=== PATIENT | female | born 1950 | race Caucasian/White ===

== ENCOUNTER 2017-06-24 11:18 | Emergency (ER) | payer MEDICARE ==
--- NOTE | 2017-06-24 11:46 | Emergency Department Record ---
History of Present Illness - General Chief Complaint: Dizziness Stated Complaint: HEADACHE,VERTIGO Time Seen by Provider: 06/24/17 11:37 Source: Patient Mode of Arrival: Ambulatory Limitations: No limitations - History of Present Illness Initial Comments: 67 yo female presents with episodes of dizziness with moving her head. The patient states she has a history of vertigo in the past. She states on Saturday she again developed room spinning when she turns her head. She does get mild nausea. The symptoms resolve with holding head still. No trouble walking. No double vision. She states she bent over quickly and fell down. She does not thing she lost consciousness. No memory loss. No coordination trouble. No vomiting. No current headache. No vision loss. No hearing changes. MD Complaint: Dizziness Onset/Timin -: Days(s) Timing: Gradual onset Description: Sense of movement, Other History of Same: Yes History of Trauma: No Severity: Moderate Improves With: Remaining still Worsens With: Other Associated Symptoms: Syncope - Precious Coma Scale Eye Response: (4) Open spontaneously Motor Response: (6) Obeys commands Verbal Response: (5) Oriented [place] Total: 15 - Symptoms of Stroke Onset of Symptoms Date: 06/22/17 Symptoms of stroke: Dizziness, Vertigo - Related Data Home Medications Medication Instructions Recorded Confirmed Last Taken Fluoxetine HCl 20 mg PO DAILY 06/24/17 06/24/17 Unknown Previous Rx's Medication Instructions Recorded Meclizine HCl [Antivert] 25 mg PO Q8H #20 tablet 06/24/17 Allergies Allergy/AdvReac Type Severity Reaction Status Date / Time cefprozil [From Cefzil] Allergy HIVES Verified 06/24/17 11:41 nitrofurantoin AdvReac NAUSEA AND Verified 06/24/17 11:41 macrocrystalline VOMITING [From Macrodantin] sulfamethoxazole AdvReac NAUSEA AND Verified 06/24/17 11:41 [From Bactrim] VOMITING trimethoprim [From Bactrim] AdvReac NAUSEA AND Verified 06/24/17 11:41 VOMITING Travel Screening - Travel/Exposure Within Last 30 Days Have you traveled within the last 30 days?: No Review of Systems Constitutional: Denies: Chills, Fever, Malaise, Weakness Eyes: Denies: Eye discharge, Eye pain, Photophobia, Vision change ENT: Denies: Congestion, Throat pain Respiratory: Denies: Cough, Dyspnea, Hemoptysis, Stridor, Wheezes Cardiovascular: Reports: Syncope (near syncope, no complete LOC). Denies: Chest pain, Dyspnea on exertion, Edema, Palpitations Endocrine: Denies: Fatigue, Polydipsia, Polyuria Gastrointestinal: Denies: Abdominal pain, Diarrhea, Nausea, Vomiting Genitourinary: Denies: Dysuria, Hematuria, Urgency Musculoskeletal: Denies: Arthralgia, Back pain, Neck pain Skin: Denies: Bruising, Change in color, Rash Neurological: Reports: Vertigo. Denies: Abnormal gait, Confusion, Headache, Numbness, Paresthesias, Seizure, Tingling, Tremors, Weakness Psychiatric: Denies: Anxiety Hematological/Lymphatic: Denies: Blood Clots, Easy bleeding, Easy bruising, Swollen glands Past Medical History - SOCIAL HISTORY Smoking Status: Never smoker - RESPIRATORY Hx Respiratory Disorders: No - CARDIOVASCULAR Hx Cardio Disorders: No - NEURO Hx Neuro Disorders: No - GI Hx GI Disorders: Yes Comment:: GERD - Hx Genitourinary Disorders: No - ENDOCRINE Hx Endocrine Disorders: No - MUSCULOSKELETAL Hx Musculoskeletal Disorders: Yes Hx Arthritis: Yes - PSYCH Hx Psych Problems: Yes Hx Anxiety: Yes Hx Depression: Yes - HEMATOLOGY/ONCOLOGY Hx Hematology/Oncology Disorders: Yes Comment:: Hypercholestremia Family Medical History Hx Cancer: Father, Mother Hx Heart Disease: Mother Hx Liver Disease: Father Physical Exam - General General Appearance: Alert, Oriented x3, Cooperative, No acute distress Limitations: No limitations - Head Head exam: Atraumatic, Normocephalic, Normal inspection - Eye Eye exam: Normal appearance, PERRL, EOMI, Nystagmus (nystagmus with Left gaze, fatigues). negative: Conjunctival injection, Scleral icterus - ENT ENT exam: Normal exam, Mucous membranes moist Ear exam: Normal external inspection Nasal Exam: Normal inspection Mouth exam: Normal external inspection Teeth exam: Normal inspection Throat exam: Normal inspection - Neck Neck exam: Normal inspection, Full ROM. negative: Tenderness - Respiratory Respiratory exam: Normal lung sounds bilaterally. negative: Respiratory distress - Cardiovascular Cardiovascular Exam: Regular rate, Normal rhythm, Normal heart sounds Peripheral Pulses: 2+: Radial (R), Radial (L) - GI/Abdominal GI/Abdominal exam: Soft. negative: Tenderness - Rectal Rectal exam: Deferred - exam: Deferred - Extremities Extremities exam: Normal inspection, Full ROM, Normal capillary refill. negative: Pedal edema, Tenderness - Back Back exam: Reports: Normal inspection, Full ROM. Denies: CVA tenderness (R), CVA tenderness (L), Muscle spasm, Rash noted, Tenderness - Neurological Neurological exam: Alert, CN II-XII intact, Normal gait, Oriented X3, Reflexes normal, Other (No PND, no ataxia, Normal FTN, No double vision, No lower extremity drift). negative: Altered, Motor sensory deficit - Psychiatric Psychiatric exam: Normal affect, Normal mood. negative: Agitated, Anxious, Depressed - Skin Skin exam: Dry, Intact, Normal color, Warm Course Vital Signs 06/24/17 11:34 Temperature 97.7 F Pulse Rate 79 Respiratory 18 Rate Blood Pressure 122/53 Pulse Ox 97 - Reevaluation(s) Reevaluation #1: EKG 11:50, NSR, L axis, QTC 482, No ST changes. No changes from 06/19/14 06/24/17 12:03 06/24/17 12:45 The labs were reviewed. Mild increase in LFT other tran no acute changes. Mild small vessel ischemic disease, no acute process or changes The patient report very good results with the Antivert She has signs that are consistent with peripheral in nature with sudden onset with turning, nystagmus, fatigues with being still, no other associated neurologic symptoms. She is to call her PCP for close follow up this week to review the ED visit and tests. Medical Decision Making - Lab Data Result diagrams: 06/24/17 11:51 06/24/17 11:51 Disposition Disposition: Discharge Clinical Impression: Vertigo Disposition: Home, Self-Care Condition: (1) Good Instructions: Vertigo (ED), Dizziness (ED) Additional Instructions: Rest and stay well hydrated Return or be seen if worse or any new symptoms or concerns Call your doctor today to review the symptoms, ED visit and the results Prescriptions: Meclizine HCl [Antivert] 25 mg PO Q8H #20 tablet Forms: Patient Portal Access Quality - Quality Measures Quality Measures: N/A - Blood Pressure Screening Does Patient Have Any of the Following: No Blood Pressure Classification: Pre-Hypertensive BP Reading Systolic Measurement: 128 Diastolic Measurement: 72 Screening for High Blood Pressure: < Pre-Hypertensive BP, F/U Documented > [ G8950] Pre-Hypertensive Follow-up Interventions: Referral to alternative/primary care provider.
[2017-06-24] MEDS ORDERED: MECLIZINE 25 MG TABLET PO ONE (11:55)
[2017-06-24 12:08] LABS: BASO % 0.9 % (0-6); EOS % 1.6 % (0-6); GRAN % 68.4 % (47-80); HEMOGLOBIN 14.1 gm/dl (11.6-16.0); LYMPH % 21.9 % (16-45); MEAN CORPUSCULAR HEMOGLOBIN 28.2 pg (27-33); MEAN PLATELET VOLUME 9.5 fl (7.4-10.4); MONO % 7.2 % (0-9); PLATELET COUNT 274 K/uL (130-400); RED CELL DISTRIBUTION WIDTH 14.8 % (11.5-14.5); WHITE BLOOD COUNT W/O DIFF 7.6 K/uL (4.2-12.2)
[2017-06-24 12:18] LABS: BLOOD UREA NITROGEN 14 mg/dL (8-23); CREATININE 0.7 mg/dL (0.5-0.9); EST GLOMERULAR FILTRATION RATE > 60 mL/min
[2017-06-24 12:21] LABS: GLUCOSE,RANDOM 112 mg/dL (74-109); INR 0.9; PARTIAL THROMBOPLASTIN TIME 26.9 SECONDS (24.5-39.1); PROTHROMBIN TIME (PATIENT) 9.9 SECONDS (9.5-12.1)
[2017-06-24 12:23] LABS: ALB/GLOB RATIO 1.7 (1.1-1.8); ALBUMIN 4.4 g/dL (4.0-5.0); ALT/SGPT 105 U/L (<33); AST/SGOT 76 U/L (10.0-35.0)
[2017-06-24 12:24] LABS: ALKALINE PHOSPHATASE 115 U/L (35-104)
--- NOTE | 2017-06-25 08:31 | CT SCAN REPORT ---
EXAM: CT OF THE BRAIN WITHOUT CONTRAST HISTORY: SYNCOPE. TECHNIQUE: CT of the brain without contrast was obtained. Comparison: 06/19/14 CT brain. FINDINGS: The globes are intact. The paranasal sinuses and mastoid air cells are unremarkable. No displaced or depressed skull fracture. Hyperostosis frontalis interna. Negative for intra or extraaxial hemorrhage. Basal ganglia calcifications. CT is limited for the evaluation of acute infarct. No CT evidence for large or territorial acute infarct. No mass or midline shift. Minimal hypodensities in the periventricular and subcortical white matter likely reflecting sequelae of minor small vessel ischemic change. IMPRESSION: MINOR SMALL VESSEL ISCHEMIC CHANGE. NO ACUTE INTRACRANIAL ABNORMALITY. JOB NUMBER: [id number] [facility]
== END 2017-06-24 13:11 | disposition home or self-care (01) ==
LOC: ER 11:18
DX: R42 Dizziness and giddiness (principal); R94.5 Abnormal results of liver function studies; R51 Headache; R11.0 Nausea
CPT/HCPCS: 70450; 80053; 84443; 85025; 85610; 85730; 93005; 93010; 99284

== ENCOUNTER 2018-10-09 03:37 | Emergency (ER) | payer MEDICARE, BC ==
[2018-10-09 04:00] LABS: URINE APPEARANCE CLEAR; URINE BILIRUBIN SMALL (NEGATIVE); URINE BLOOD MODERATE (NEGATIVE); URINE COLOR YELLOW; URINE GLUCOSE (UA) NEGATIVE (NEGATIVE); URINE KETONE NEGATIVE (NEGATIVE); URINE LEUKOCYTE ESTERASE NEGATIVE (NEGATIVE); URINE NITRITE NEGATIVE (NEGATIVE); URINE UROBILINOGEN 0.2 E.U./dL (0.20 - 1.00)
[2018-10-09] MEDS ORDERED: 0.9 % SODIUM CHLORIDE 1,000 ML BAG IV ONE (04:02)
[2018-10-09] MEDS ORDERED: KETOROLAC 30 MG/ML VIAL IVP ONE (04:02)
[2018-10-09] MEDS ORDERED: ONDANSETRON HCL IV 4 MG/2 ML VIAL IV ONE (04:02)
[2018-10-09 04:08] LABS: URINE RBC 16 - 25 (NONE SEEN); URINE WBC 0 - 2 (0-2/hpf)
[2018-10-09 04:09] LABS: URINE CALCIUM OXALATE CRYSTALS FEW /hpf
[2018-10-09 04:18] LABS: ABSOLUTE NEUTROPHIL COUNT 6.78; BASO % 0.7 % (0-6); EOS % 1.6 % (0-6); GRAN % 68.9 % (47-80); HEMATOCRIT 42.4 % (35.0-47.0); HEMOGLOBIN 14.3 gm/dl (11.6-16.0); LYMPH % 21.3 % (16-45); MEAN CELL VOLUME 84.8 fl (81-97); MEAN CORPUSCULAR HEMOGLOBIN 28.6 pg (27-33); MEAN CORPUSCULAR HGB CONC 33.7 g/dl (32-36); MEAN PLATELET VOLUME 9.7 fl (7.4-10.4); MONO % 7.5 % (0-9); PLATELET COUNT 242 K/uL (130-400); RED CELL DISTRIBUTION WIDTH 14.7 % (11.5-14.5); WHITE BLOOD COUNT W/O DIFF 9.9 K/uL (4.2-12.2)
[2018-10-09 04:32] LABS: BLOOD UREA NITROGEN 22 mg/dL (8-23); CREATININE 0.8 mg/dL (0.5-0.9); EST GLOMERULAR FILTRATION RATE > 60 mL/min
[2018-10-09 04:33] LABS: TOTAL PROTEIN 6.9 g/dL (6.6-8.7)
[2018-10-09 04:35] LABS: GLUCOSE,RANDOM 122 mg/dL (74-109)
[2018-10-09 04:37] LABS: ALT/SGPT 123 U/L (<33)
[2018-10-09 04:38] LABS: ALBUMIN 4.3 g/dL (4.0-5.0); ALKALINE PHOSPHATASE 95 U/L (35-104); AST/SGOT 74 U/L (10.0-35.0); BILIRUBIN,DIRECT < 0.2 mg/dL (0-0.3)
--- NOTE | 2018-10-09 04:41 | Emergency Department Record ---
History of Present Illness - General Chief Complaint: Abdominal Pain Stated Complaint: ABDOMINAL PAIN Time Seen by Provider: 10/09/18 03:58 Source: Patient Mode of Arrival: Ambulatory Limitations: No limitations - History of Present Illness Initial Comments: pt awakened with severe pain that feels like previous kidney stone. she is unable to to say which side it is on. 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 MD Complaint: Abdominal pain, Flank pain Onset/Timin -: Hour(s) Location: Suprapubic Radiation: Other Migration to: No migration Severity: Moderate Severity scale (1-10): 7 Quality: Other Consistency: Constant Improves With: Nothing Worsens With: Nothing Associated Symptoms: Diarrhea, Vomiting - Related Data Patient : No Previous Rx's Medication Instructions Recorded Hydrocodone/Acetaminophen [[place] 1 each PO Q6HR #12 tablet 10/09/18 5-325 Tablet] Allergies Allergy/AdvReac Type Severity Reaction Status Date / Time cefprozil [From Cefzil] Allergy HIVES Verified 10/09/18 03:41 nitrofurantoin AdvReac NAUSEA AND Verified 10/09/18 03:41 macrocrystalline VOMITING [From Macrodantin] sulfamethoxazole AdvReac NAUSEA AND Verified 10/09/18 03:41 [From Bactrim] VOMITING trimethoprim [From Bactrim] AdvReac NAUSEA AND Verified 10/09/18 03:41 VOMITING Travel Screening - Travel/Exposure Within Last 30 Days Have you traveled within the last 30 days?: No - Travel/Exposure Within Last Year Have you traveled outside the [place] in the last year?: No - Additonal Travel Details Have you been exposed to anyone with a communicable illness?: No - Travel Symptoms Symptom Screening: None Review of Systems Reviewed: No additional complaints except as noted below Constitutional: Reports: As per HPI. Denies: Chills, Fever, Malaise, Night sweats, Weakness, Weight change Eyes: Reports: As per HPI. Denies: Eye discharge, Eye pain, Photophobia, Vision change ENT: Reports: As per HPI. Denies: Congestion, Dental pain, Ear pain, Epistaxis, Hearing loss, Throat pain Respiratory: Reports: As per HPI. Denies: Cough, Dyspnea, Hemoptysis, Stridor, Wheezes Cardiovascular: Reports: As per HPI. Denies: Arrhythmia, Chest pain, Dyspnea on exertion, Edema, Murmurs, Orthopnea, Palpitations, Paroxysmal nocturnal dyspnea, Rheumatic Fever, Syncope Endocrine: Reports: As per HPI. Denies: Fatigue, Heat or cold intolerance, Polydipsia, Polyuria Gastrointestinal: Reports: As per HPI, Abdominal pain. Denies: Constipation, Diarrhea, Hematemesis, Hematochezia, Melena, Nausea, Vomiting Genitourinary: Reports: As per HPI. Denies: Abnormal menses, Discharge, Dyspareunia, Dysuria, Frequency, Hematuria, Incontinence, Retention, Urgency Musculoskeletal: Reports: As per HPI. Denies: Arthralgia, Back pain, Gout, Joint swelling, Myalgia, Neck pain Skin: Reports: As per HPI. Denies: Bruising, Change in color, Change in hair/nails, Lesions, Pruritus, Rash Neurological: Reports: As per HPI. Denies: Abnormal gait, Confusion, Headache, Numbness, Paresthesias, Seizure, Tingling, Tremors, Vertigo, Weakness Psychiatric: Reports: As per HPI. Denies: Anxiety, Auditory hallucinations, Depression, Homicidal thoughts, Suicidal thoughts, Visual hallucinations Hematological/Lymphatic: Reports: As per HPI. Denies: Anemia, Blood Clots, Easy bleeding, Easy bruising, Swollen glands Past Medical History - SOCIAL HISTORY Smoking Status: Never smoker Alcohol Use: Rare Drug Use: None - RESPIRATORY Hx Respiratory Disorders: No - CARDIOVASCULAR Hx Cardio Disorders: No Comment:: hypercholesteremia - NEURO Hx Neuro Disorders: No - GI Hx GI Disorders: Yes Comment:: GERD - Hx Genitourinary Disorders: Yes Hx Kidney Stones: Yes - ENDOCRINE Hx Endocrine Disorders: No - MUSCULOSKELETAL Hx Musculoskeletal Disorders: Yes Hx Arthritis: Yes - PSYCH Hx Psych Problems: Yes Hx Anxiety: Yes Hx Depression: Yes - HEMATOLOGY/ONCOLOGY Hx Hematology/Oncology Disorders: Yes Comment:: Hypercholestremia Family Medical History Any Significant Family History?: No Hx Cancer: Father, Mother Hx Heart Disease: Mother Hx Liver Disease: Father Physical Exam - General General Appearance: Alert, Oriented x3, Cooperative, Moderate distress - Head Head exam: Normal inspection - Eye Eye exam: Normal appearance, PERRL, EOMI Pupils: Normal accommodation - ENT ENT exam: Normal exam, Mucous membranes moist, Normal external ear exam, Normal orophraynx Ear exam: Normal external inspection. negative: External canal tenderness Nasal Exam: Normal inspection. negative: Discharge, Sinus tenderness Mouth exam: Normal external inspection, Tongue normal Teeth exam: Normal inspection. negative: Dental caries Throat exam: Normal inspection. negative: Tonsillar erythema, Tonsillar exudate - Neck Neck exam: Normal inspection, Full ROM. negative: Tenderness - Respiratory Respiratory exam: Normal lung sounds bilaterally. negative: Respiratory distress - Cardiovascular Cardiovascular Exam: Regular rate, Normal rhythm, Normal heart sounds - GI/Abdominal GI/Abdominal exam: Soft, Normal bowel sounds, Tenderness - Rectal Rectal exam: Deferred - exam: Deferred - Extremities Extremities exam: Normal inspection, Full ROM, Normal capillary refill. negative: Tenderness - Back Back exam: Reports: Normal inspection, Full ROM. Denies: Muscle spasm, Rash noted, Tenderness - Neurological Neurological exam: Alert, CN II-XII intact, Normal gait, Oriented X3 - Psychiatric Psychiatric exam: Normal affect, Normal mood - Skin Skin exam: Dry, Intact, Normal color, Warm Course Vital Signs 10/09/18 03:44 Temperature 97.5 F L Pulse Rate 89 Respiratory 22 Rate Blood Pressure 131/84 Pulse Ox 96 - Reevaluation(s) Reevaluation #1: 10/09/18 05:11 pt feels much better, pain is gone. ct shows a 5x10mm cystolith in the bladder Medical Decision Making - Lab Data Result diagrams: 10/09/18 04:10 10/09/18 04:10 Lab Results 10/09/18 10/09/18 Range/Units 03:58 04:10 WBC 9.9 (4.2-12.2) K/uL RBC 5.00 (3.80-5.40) M/uL Hgb 14.3 (11.6-16.0) gm/dl Hct 42.4 (35.0-47.0) % MCV 84.8 (81-97) fl MCH 28.6 (27-33) pg MCHC 33.7 (32-36) g/dl RDW 14.7 H (11.5-14.5) % Plt Count 242 (130-400) K/uL MPV 9.7 (7.4-10.4) fl Gran % 68.9 (47-80) % Lymphocytes % 21.3 (16-45) % Monocytes % 7.5 (0-9) % Eosinophils % 1.6 (0-6) % Basophils % 0.7 (0-6) % Absolute Neutrophils 6.78 Urine Color Yellow Urine Appearance Clear Urine pH 5.0 (5.0-8.0) Ur Specific [place] >= 1.030 (1.002-1.030) Urine Protein 30 mg/dl H (NEGATIVE) Urine Glucose (UA) Negative (NEGATIVE) Urine Ketones Negative (NEGATIVE) Urine Blood Moderate (NEGATIVE) Urine Nitrite Negative (NEGATIVE) Urine Bilirubin Small H (NEGATIVE) Urine Urobilinogen 0.2 (0.20 - 1.00) E.U./dL Ur Leukocyte Esterase Negative (NEGATIVE) Urine RBC 16 - 25 (NONE SEEN) Urine WBC 0 - 2 (0-2/hpf) Ur Epithelial Cells 3 - 6 (FEW) Calcium Oxalate Crystal Few /hpf Disposition Disposition: Discharge Clinical Impression: Renal lithiasis Hydronephrosis Qualifiers: Hydronephrosis type: with ureteral calculous obstruction Qualified Code(s): N13.2 - Hydronephrosis with renal and ureteral calculous obstruction Disposition: Home, Self-Care Condition: (1) Good Instructions: Kidney Stones (ED), How to Strain Your Urine (ED) Additional Instructions: follow up with dr arguello. push fluids. return sooner if worse Prescriptions: Hydrocodone/Acetaminophen [[place] 5-325 Tablet] 1 each PO Q6HR #12 tablet Referrals: Obed Arguello M.D. [MEDICAL DOCTOR] - [facility] [Provider Group] Forms: Patient Portal Access Quality - Quality Measures Quality Measures: N/A - Blood Pressure Screening Does Patient Have Any of the Following: No Blood Pressure Classification: Pre-Hypertensive BP Reading Systolic Measurement: 131 Diastolic Measurement: 84 Screening for High Blood Pressure: < Pre-Hypertensive BP, F/U Documented > [G8950] Pre-Hypertensive Follow-up Interventions: Follow-up with rescreen every year.
[2018-10-09] MEDS ORDERED: HYDROCODONE/APAP 5/325MG TABLET PO ONE (05:16)
--- NOTE | 2018-10-09 14:49 | CT SCAN REPORT ---
EXAM: CT OF THE ABDOMEN AND PELVIS WITHOUT IV CONTRAST HISTORY: THIS IS A 68-YEAR-OLD FEMALE WITH LOWER PELVIC AND PUBIC PAIN FOR THREE HOURS, SIMILAR TO PASSING STONES. HEMATURIA. TECHNIQUE: Axial computed tomography images of the abdomen and pelvis without IV contrast were obtained, with reconstruction in the coronal and sagittal planes. Comparison: No prior exams available. FINDINGS: LIVER: The liver is enlarged and demonstrates diffuse decreased attenuation as seen in hepatic steatosis. GALLBLADDER AND BILE DUCTS: Normal, no cholelithiasis or ductal dilatation. PANCREAS: Normal, no ductal dilatation or inflammatory changes. SPLEEN: Normal, no splenomegaly. ADRENALS: Normal, no mass. KIDNEYS AND URETERS: There is a posterior exophytic superior left renal cystic mass measuring up to 5.8 cm. A partially duplicated left urinary tract is noted. Mild left sided hydronephrosis. No renal calculus is identified. STOMACH AND BOWEL: Multiple colonic diverticula are present, no evidence of acute diverticulitis. APPENDIX: The appendix appears normal in size, no evidence of acute appendicitis. INTRAPERITONEAL SPACE: No free air or significant ascites. VASCULATURE: No abdominal aortic aneurysm or significant calcified plaque. LYMPH NODES: No lymphadenopathy. URINARY BLADDER: There is a 5 x 10 mm calcification anteriorly adjacent of the left UVJ. No other bladder calculi identified. REPRODUCTIVE: No suspicious masses. BONES AND JOINTS: No acute displaced fracture or dislocation. Mild degenerative changes of the lumbar spine are present. IMPRESSION: 1. 5 X 10 MM POSTERIOR LEFT URINARY BLADDER CALCULUS ANTERIORLY ADJACENT OF THE LEFT UVJ. 2. NO OTHER CALCULUS. MILD LEFT SIDED HYDRONEPHROSIS. NO HYDROURETER. 3. SIGMOID COLON DIVERTICULOSIS, NO EVIDENCE OF ACUTE DIVERTICULITIS OR APPENDICITIS. 4. HEPATOMEGALY, HEPATIC STEATOSIS. J[facility]BER: [id number] [facility]
== END 2018-10-09 05:34 | disposition home or self-care (01) ==
LOC: ER 03:37
DX: N13.2 Hydronephrosis with renal and ureteral calculous obstruction (principal); R19.7 Diarrhea, unspecified; R11.11 Vomiting without nausea; Z87.442 Personal history of urinary calculi
CPT/HCPCS: 99284 ×2; 96374; 96375; 96361; 85025; 80076; 80048; 81001; 74176; J1885; J2405; J7030

== ENCOUNTER 2018-10-31 08:39 | Day surgery (SDC) | payer MEDICARE, BC ==
[~2018-10-31 08:39] MED LIST: ACETAMINOPHEN 1,000 MG/100 ML BTL IVPB ONE; CLINDAMYCIN 600MG/50ML PREMIX 600 MG/50 ML BAG IVPB ONE
[2018-10-31] MEDS ORDERED: MIDAZOLAM HCL 2MG/2ML VIAL IV ONE (08:40)
[2018-10-31] MEDS ORDERED: ONDANSETRON HCL IV 4 MG/2 ML VIAL IVP ONE (08:40)
[2018-10-31] MEDS ORDERED: PROPOFOL 10 MG/ML VIAL IV ONE (08:40)
[2018-10-31] MEDS ORDERED: SEVOFLURANE 250 ML INH ONE (08:40)
[2018-10-31] MEDS ORDERED: LIDOCAINE 2% MDV (20MG/ML) 20ML VIAL IV ONE (08:40)
[2018-10-31] MEDS ORDERED: FENTANYL PF 100MCG/2ML VIAL IV ONE (08:40)
[2018-10-31] MEDS ORDERED: DEXAMETHASONE 4 MG/ML 1ML VIAL IVP ONE (08:40)
[2018-10-31] MEDS ORDERED: RINGERS SOLUTION,LACTATED 1,000 ML IV ONE ×2 (09:15→11:00)
[2018-10-31] MEDS ORDERED: OXYBUTYNIN CHLORIDE 5MG TABLET PO ONE (11:20)
[2018-10-31] MEDS ORDERED: PHENAZOPYRIDINE HCL 95 MG TABLET PO ONE (11:20)
[2018-10-31] MEDS ORDERED: HYDROCODONE/APAP 5/325MG TABLET PO ONE (11:58)
== END 2018-10-31 12:24 | disposition home or self-care (01) ==
LOC: SUR 08:39
PROVIDERS: ATTEND Urology
DX: N20.1 Calculus of ureter (principal); E78.00 Pure hypercholesterolemia, unspecified; R35.0 Frequency of micturition; R33.9 Retention of urine, unspecified
CPT/HCPCS: J2405; J7120; Q9958